=== PATIENT | female | born 1955 | race Caucasian/White ===

== ENCOUNTER 2018-02-13 17:44 | Emergency (ER) | payer SELFPAY ==
[2018-02-13 18:07] VITALS: TEMP 98.4
--- NOTE | 2018-02-13 18:15 | ED.PDOC ---
History of Present Illness - General Chief Complaint: General Stated Complaint: L groin discomfort Time Seen by Provider: 02/13/18 18:14 Source: patient Exam Limitations: no limitations - History of Present Illness Initial Comments: Meet Fine 62 y/o female stated that she had sharp left groin pain intermittently for the last 2 months but stated got more intense while he was wlaking shopping at [employer] today.Denies dysuria,history of trauma,fever,.No chronic medical problem. Timing/Duration: getting worse, intermittent, other - 2 months Severity: moderate Improving Factors: rest Worsening Factors: movement Associated Symptoms: denies symptoms Allergies/Adverse Reactions: Allergies NO KNOWN ALLERGY Allergy (Verified 02/13/18 18:06) Home Medications: Ambulatory Orders Acetamin W/Cod #3 Tab [Tylenol w/CODEINE #3] 1 ea PO TID #10 tab 02/13/18 Aspirin [Baby Aspirin] 81 mg PO DAILY 02/13/18 Dexlansoprazole [Dexilant] 60 mg PO DAILY PRN 02/13/18 Estradiol [Estrace] 2 mg PO DAILY 02/13/18 Progesterone Micronized [Progesterone] 100 mg PO BEDTIME 02/13/18 Thyroid [Nature-Throid] 130 mg PO DAILY 02/13/18 Review of Systems - Review of Systems Constitutional: States: no symptoms reported EENTM: States: no symptoms reported Respiratory: States: no symptoms reported Cardiology: States: no symptoms reported Gastrointestinal/Abdominal: States: no symptoms reported Genitourinary: States: no symptoms reported Musculoskeletal: States: see HPI Skin: States: no symptoms reported Past Medical History (General) - Patient Medical History Hx Stroke: No Hx Congestive Heart Failure: No Hx Thyroid Disease: Yes - David's Hx Diabetes: No Surgical History: appendectomy, other - hysterectomy - Vaccination History Hx Influenza Vaccination: Yes - 2017 Hx Pneumococcal Vaccination: No - Social History Hx Tobacco Use: Yes Hx Alcohol Use: No - social use Hx Physical Abuse: No Hx Emotional Abuse: No - Activities of Daily Living Patient Lives Alone: No Family Medical History - Family History Mother Living Status: Hx Family Stroke: Yes - mom Hx Cardiac Disease: Yes - dad Physical Exam - Physical Exam General Appearance: Alert, Comfortable, No apparent distress Eye Exam: bilateral normal Ears, Nose, Throat: hearing grossly normal, normal ENT inspection Neck: non-tender, full range of motion, supple, normal inspection Respiratory: chest non-tender, lungs clear, normal breath sounds Cardiovascular/Chest: normal peripheral pulses, regular rate, rhythm, no murmur Peripheral Pulses: radial,right: 2+, radial,left: 2+ Gastrointestinal/Abdominal: normal bowel sounds, non tender, soft Back Exam: no CVA tenderness, no vertebral tenderness Extremity: normal range of motion, non-tender, no pedal edema, no calf tenderness, other - rom left hip full,no masses felt groin area-left Neurologic: no motor/sensory deficits, alert, oriented x 3 Skin Exam: normal color, warm/dry Lymphatic: no adenopathy Progress - Progress Progress: 02/13/18 18:49 Vital Signs - 8 hr 02/13/18 17:57 Temperature 98.4 F Pulse Rate [ 98 H Left Radial] Respiratory 20 Rate Blood Pressure 147/67 [Left Arm] O2 Sat by Pulse 96 Oximetry - Results/Orders Results/Orders: Vital Signs - 8 hr 02/13/18 02/13/18 02/13/18 17:57 18:52 19:20 Temperature 98.4 F 98.4 F Pulse Rate [ 98 H 87 87 Left Radial] Respiratory 20 20 20 Rate Blood Pressure 147/67 119/64 129/86 [Left Arm] O2 Sat by Pulse 96 94 L 96 Oximetry 02/13/18 18:49 IV Care:Saline Lock per Protoc QSHIFT 02/13/18 19:41 Hold Metformin x 48Hrs [id number] Laboratory Results - last 24 hr 02/13/18 02/13/18 02/13/18 18:49 18:49 19:33 WBC 6.3 RBC 4.52 Hgb 14.1 Hct 40.5 MCV 89.7 MCH 31.2 H MCHC 34.7 RDW 13.8 Plt Count 310 MPV 6.6 L Absolute Neuts (auto) 3.40 Absolute Lymphs (auto) 1.90 Absolute Monos (auto) 0.80 Absolute Eos (auto) 0.20 Absolute Basos (auto) 0.10 Neutrophils % 53.4 Lymphocytes % 30.0 Monocytes % 12.4 H Eosinophils % 3.4 Basophils % 0.8 Sodium 142 Potassium 3.7 Chloride 109 Carbon Dioxide 25 Anion Gap 11.7 L BUN 15 Creatinine 1.02 BUN/Creatinine Ratio 14.7 Random Glucose 89 Serum Osmolality 283.4 Calcium 9.2 Urine Color Yellow Urine Appearance Clear Urine pH 6.0 Ur Specific [place] 1.025 Urine Protein Negative Urine Glucose (UA) Negative Urine Ketones Negative Urine Blood Negative Urine Nitrite Negative Urine Bilirubin Negative Urine Urobilinogen 0.2 Ur Leukocyte Esterase Negative Urine RBC 0-1 Urine WBC 5-10 H Ur Epithelial Cells 10-20 Urine Bacteria 3+ H Urine Mucus Moderate - EKG/XRAY/CT CT Ordered: Yes - abd/p-left nephrolithiasis non obstructing 4 mm. Departure - Departure Clinical Impression: Nephrolithiasis Abdominal pain Qualifiers: Abdominal location: left lower quadrant Qualified Code(s): R10.32 - Left lower quadrant pain Time of Disposition: 20:31 Disposition: Discharge to Home or Self Care Condition: Fair Departure Forms: ED Discharge - Pt. Copy, Patient Portal Self Enrollment Instructions: Inguinal and Femoral (Groin) Hernias, Groin Hernia (DC), Kidney Stones in Adults, Kidney Stones (DC) Prescriptions: Acetamin W/Cod #3 Tab [Tylenol w/CODEINE #3] 1 ea PO TID #10 tab Home Medications: Ambulatory Orders Acetamin W/Cod #3 Tab [Tylenol w/CODEINE #3] 1 ea PO TID #10 tab 02/13/18 Aspirin [Baby Aspirin] 81 mg PO DAILY 02/13/18 Dexlansoprazole [Dexilant] 60 mg PO DAILY PRN 02/13/18 Estradiol [Estrace] 2 mg PO DAILY 02/13/18 Progesterone Micronized [Progesterone] 100 mg PO BEDTIME 02/13/18 Thyroid [Nature-Throid] 130 mg PO DAILY 02/13/18 Additional Instructions: Follow up with 16 February 2018 call office-[phone] for appointment Return to ER as needed
[2018-02-13] MEDS ORDERED: LACTATED RINGERS 1,000 ML IVS ONE (18:49)
[2018-02-13] MEDS ORDERED: KETOROLAC TROMETHAMINE INJ 30 MG/ML VIAL IV ONE (18:50)
[2018-02-13] MEDS ORDERED: ORPHENADRINE CITRATE 30 MG/ML AMP IV ONE (18:50)
[2018-02-13 19:22] VITALS: O2SAT 96
[2018-02-13 20:18] VITALS: BP 187/63
--- NOTE | 2018-02-13 20:20 | CT ---
PROCEDURE: CT Abdomen and Pelvis With Intravenous Contrast CLINICAL INDICATION: The patient is 62 years old and is Female; left sided abdominal/groin pain nausea x2 months, no injury TECHNIQUE: Axial computed tomography images of the abdomen and pelvis with intravenous contrast. Sagittal and coronal reformatted images were created and reviewed. This exam was performed according to our departmental dose-optimization program, which includes automated exposure control, adjustment of the mA and/or kV according to patient size and/or use of iterative reconstruction technique. Oral contrast was not administered. COMPARISON: No relevant prior studies available. FINDINGS: LUNG BASES: Lung bases are unremarkable. ABDOMEN: LIVER: Hepatic steatosis is identified mild in degree. No intrahepatic lesions are noted. GALLBLADDER AND BILE DUCTS: Unremarkable. No calcified stones. No ductal dilation. PANCREAS: Unremarkable. No ductal dilation. No discrete lesion. No acute geraldo-pancreatic inflammatory change. SPLEEN: Unremarkable. No splenomegaly. ADRENALS: Unremarkable. No mass. KIDNEYS AND URETERS: Unremarkable with normal enhancement of both kidneys. There is a 4 mm nonobstructing calculus in the interpolar region of the LEFT kidney.. No solid mass. No hydronephrosis. STOMACH AND BOWEL: There has been prior gastric surgery. No obstruction. No mucosal thickening. PELVIS: APPENDIX: The appendix is surgically absent. BLADDER: The urinary bladder is underdistended. REPRODUCTIVE: Changes from prior hysterectomy noted. ABDOMEN and PELVIS: INTRAPERITONEAL SPACE: Unremarkable. No free air. No significant fluid collection. BONES/JOINTS: Facet degenerative change is noted in the lower lumbar spine. No acute fracture. No dislocation. SOFT TISSUES: Unremarkable. VASCULATURE: Unremarkable. No abdominal aortic aneurysm. LYMPH NODES: Unremarkable. No enlarged lymph nodes. IMPRESSION: No acute inflammatory process is identified in the abdomen or pelvis. No identifiable cause for the patient's pain. Status post hysterectomy and appendectomy. Electronically signed by: Levar Villa MD 02/13/2018 8:19 PM CDT
[2018-02-13] MEDS ORDERED: HYDROCOD/APAP 10/325 (ER DISP) # 3 tablets PO ONE (20:32)
== END 2018-02-13 20:59 | disposition home or self-care (01) ==
LOC: ER 17:44
DX: N20.0 Calculus of kidney (principal); R10.32 Left lower quadrant pain; E06.3 Autoimmune thyroiditis; Z87.891 Personal history of nicotine dependence; Z90.49 Acquired absence of other specified parts of digestive tract; Z79.82 Long term (current) use of aspirin; Z79.899 Other long term (current) drug therapy
CPT/HCPCS: 74177; 80048; 81001; 85025; J1885; J2360; J7120

== ENCOUNTER 2019-01-19 13:04 | Emergency (ER) | payer SELFPAY ==
[2019-01-19] MEDS ORDERED: ASPIRIN TABLET 325 MG TAB PO ONE (13:25)
[2019-01-19] MEDS ORDERED: NITROGLYCERIN 0.4 MG 25 EA TAB SL ONE (13:25)
--- NOTE | 2019-01-19 13:49 | ED.PDOC ---
History of Present Illness - General Chief Complaint: Chest Pain/TX Stated Complaint: Chest discomfort, elevated BP Time Seen by Provider: 01/19/19 13:20 Source: patient Exam Limitations: no limitations - History of Present Illness Initial Comments: Meet Fine 63 y/o female came to ER with chest pressure today which goes around her back with feeling of nausea.Went to check blood pressure at [facility] noted it was high BP-170/104 and went to her Md office to get it confirmed which showed same high BP.Had also been having sharp right sided headache with right eye photosensitivity.Has high blood pressure but not taking medications Timing/Duration: 7-24 hours Severity: moderate Location: central Activities at Onset: none Prior Chest Pain/Cardiac Workup: no prior chest pain, no prior cardiac workup Improving Factors: nothing Nitro Today/Relief: 0.4 mg x 1, provided by ED Aspirin Treatment Today: 81 mg x 4 Associated Symptoms: other - see hpi Allergies/Adverse Reactions: Allergies NO KNOWN ALLERGY Allergy (Verified 02/13/18 18:06) Home Medications: Ambulatory Orders Acetamin W/Cod #3 Tab [Tylenol w/CODEINE #3] 1 ea PO TID #10 tab 02/13/18 Aspirin [Baby Aspirin] 81 mg PO DAILY 02/13/18 Dexlansoprazole [Dexilant] 60 mg PO DAILY PRN 02/13/18 Estradiol [Estrace] 2 mg PO DAILY 02/13/18 Progesterone Micronized [Progesterone] 100 mg PO BEDTIME 02/13/18 Thyroid [Nature-Throid] 130 mg PO DAILY 02/13/18 Acetaminophen W/ Codeine [Tylenol/Codeine #4 300-60 mg] 1 ea PO Q4HR PRN #14 tab 01/19/19 amLODIPine BESYLATE [Norvasc] 5 mg PO DAILY #30 tab 01/19/19 Review of Systems - Review of Systems Constitutional: States: no symptoms reported EENTM: States: no symptoms reported Respiratory: States: no symptoms reported Cardiology: States: see HPI Gastrointestinal/Abdominal: States: no symptoms reported Musculoskeletal: States: no symptoms reported Skin: States: no symptoms reported Neurological: States: see HPI, numbness Past Medical History (General) - Patient Medical History Hx Stroke: No Hx Congestive Heart Failure: No Hx Thyroid Disease: Yes - Hashimotos Hx Diabetes: No Hx MRSA: No Surgical History: tonsillectomy, other - hysterectomy,btl,knee,foot - Vaccination History Hx Influenza Vaccination: No Hx Pneumococcal Vaccination: No - Social History Hx Tobacco Use: Yes Hx Alcohol Use: No Hx Physical Abuse: No Hx Emotional Abuse: No Family Medical History - Family History Mother Living Status: Hx Family Stroke: Yes - mom Hx Cardiac Disease: Yes - dad Physical Exam - Physical Exam General Appearance: Alert, Comfortable, No apparent distress Eyes, Ears, Nose, Throat Exam: PERRL/EOMI, normal ENT inspection, pharynx normal Neck: full range of motion, supple, normal inspection Respiratory: lungs clear, normal breath sounds, no respiratory distress Cardiovascular/Chest: normal peripheral pulses, regular rate, rhythm, no murmur Peripheral Pulses: radial,right: 2+, radial,left: 2+ Gastrointestinal/Abdominal: non tender, soft Extremity: no pedal edema, no calf tenderness Neurologic: alert, oriented x 3 Skin Exam: normal color, warm/dry Progress - Progress Progress: 01/19/19 14:01 Vital Signs 01/19/19 13:08 Pulse Rate [ 94 H Apical] Respiratory 20 Rate Blood Pressure 167/101 [Left Arm] O2 Sat by Pulse 96 Oximetry 01/19/19 16:57 FEELING GOOD;WANTS TO GO HOME - Results/Orders Results/Orders: 01/19/19 13:25 EKG Stat Chest,1 View [RAD] Stat Laboratory Results - last 24 hr 01/19/19 01/19/19 01/19/19 13:44 13:44 13:44 WBC 5.9 RBC 4.76 Hgb 15.3 Hct 42.9 MCV 90.0 MCH 32.1 H MCHC 35.7 RDW 13.8 Plt Count 302 MPV 7.1 L Absolute Neuts (auto) 3.60 Absolute Lymphs (auto) 1.60 Absolute Monos (auto) 0.60 Absolute Eos (auto) 0.20 Absolute Basos (auto) 0.00 Neutrophils % 60.4 Lymphocytes % 26.4 Monocytes % 9.7 H Eosinophils % 2.8 Basophils % 0.7 PT 9.1 INR 0.91 PTT (SP) 24.7 D-Dimer, Quantitative 0.36 Sodium 140 Potassium 3.6 Chloride 106 Carbon Dioxide 22 Anion Gap 15.6 BUN 11 Creatinine 0.82 BUN/Creatinine Ratio 13.4 Random Glucose 115 H Serum Osmolality 279.7 Calcium 9.2 Magnesium 2.2 Total Bilirubin 0.5 Direct Bilirubin < 0.1 Indirect Bilirubin 0.4 AST 32 ALT 28 Alkaline Phosphatase 60 Creatine Kinase 31 CK-MB (CK-2) 0.8 CK-MB (CK-2) % Not Reportable Troponin I < 0.02 B-Natriuretic Peptide 20.6 Serum Total Protein 6.9 Albumin 3.9 TSH 01/19/19 01/19/19 13:44 15:47 WBC RBC Hgb Hct MCV MCH MCHC RDW Plt Count MPV Absolute Neuts (auto) Absolute Lymphs (auto) Absolute Monos (auto) Absolute Eos (auto) Absolute Basos (auto) Neutrophils % Lymphocytes % Monocytes % Eosinophils % Basophils % PT INR PTT (SP) D-Dimer, Quantitative Sodium Potassium Chloride Carbon Dioxide Anion Gap BUN Creatinine BUN/Creatinine Ratio Random Glucose Serum Osmolality Calcium Magnesium Total Bilirubin Direct Bilirubin Indirect Bilirubin AST ALT Alkaline Phosphatase Creatine Kinase CK-MB (CK-2) CK-MB (CK-2) % Troponin I < 0.02 B-Natriuretic Peptide Serum Total Protein Albumin TSH 0.15 L Discuss all test result with patient - EKG/XRAY/CT EKG: Sinus, no ST T wave changes Comments: HR-93 CT Interpretation Call Back: Yes - no intracranial pathologic process Departure - Departure Clinical Impression: Chest discomfort, Headache above the eye region High blood pressure Qualifiers: Hypertension type: unspecified Qualified Code(s): I10 - Essential (primary) hypertension Time of Disposition: 17:02 Disposition: Discharge to Home or Self Care Condition: Fair Departure Forms: ED Discharge - Pt. Copy, Patient Portal Self Enrollment Instructions: DI for Chest Pain Prescriptions: Acetaminophen W/ Codeine [Tylenol/Codeine #4 300-60 mg] 1 ea PO Q4HR PRN #14 tab PRN Reason: Headache/Migraine Pain amLODIPine BESYLATE [Norvasc] 5 mg PO DAILY #30 tab Home Medications: Ambulatory Orders Acetamin W/Cod #3 Tab [Tylenol w/CODEINE #3] 1 ea PO TID #10 tab 02/13/18 Aspirin [Baby Aspirin] 81 mg PO DAILY 02/13/18 Dexlansoprazole [Dexilant] 60 mg PO DAILY PRN 02/13/18 Estradiol [Estrace] 2 mg PO DAILY 02/13/18 Progesterone Micronized [Progesterone] 100 mg PO BEDTIME 02/13/18 Thyroid [Nature-Throid] 130 mg PO DAILY 02/13/18 Acetaminophen W/ Codeine [Tylenol/Codeine #4 300-60 mg] 1 ea PO Q4HR PRN #14 tab 01/19/19 amLODIPine BESYLATE [Norvasc] 5 mg PO DAILY #30 tab 01/19/19 Additional Instructions: RETURN TO EMERGENCY ROOM NEEDED;FOLLOW UP WITH PRIMARY Md For Recheck Jan ust 2019
[2019-01-19] MEDS ORDERED: fentaNYL CITRATE INJ 50 MCG/ML AMP IV ONE (13:55)
[2019-01-19] MEDS ORDERED: LABETALOL INJ 5 MG/ML VIAL IV ONE (13:55)
[2019-01-19] MEDS ORDERED: PROCHLORPERAZINE INJ 10 MG/2 ML VIAL IV ONE (13:55)
--- NOTE | 2019-01-19 16:02 | CT ---
EXAM DESCRIPTION: Head CLINICAL HISTORY: headache COMPARISON: None available TECHNIQUE: Noncontrast head CT was performed with routine protocol. FINDINGS: Normal burns-white matter differentiation. Ventricles and sulci are normal for age. High density could be scarring or small contusion of the right frontal scalp. Clinical correlation recommended. No high density hemorrhage, focal edema or shift of the midline. No sulcal effacement. Normal orbital contents. Basilar cisterns appear clear. Intact calvarium with no fracture or lytic lesion. Normal aeration of tympanic cavities and mastoid air cells. No fluid levels in the paranasal sinuses. Skull base appears intact. Symmetrical internal auditory canals. IMPRESSION: No acute intracranial pathologic process. This exam was performed according to our departmental dose-optimization program, which includes automated exposure control, adjustment of the mA and/or kV according to patient size and/or use of iterative reconstruction technique. Total DLP equals 752.48 mGycm. Electronically signed by: Paul Roe MD 01/19/2019 4:00 PM CDT
--- NOTE | 2019-01-19 17:56 | RAD ---
EXAM DESCRIPTION: Chest,1 View CLINICAL HISTORY: chest discomfort COMPARISON: None Available. FINDINGS: Cardiac silhouette shows normal heart size. Pulmonary vascularity is within normal limits. Lungs show no confluent infiltrates. Bilateral costophrenic angles are sharp. No pneumothorax. Visualized osseous structures show no destructive lesions. Included upper abdomen show no acute abnormality. IMPRESSION: 1. No acute cardiopulmonary process. Electronically signed by: Gagan Herrera MD 01/19/2019 5:55 PM CDT
[2019-01-20 11:02] VITALS: BP 133/84; TEMP 97; O2SAT 96
== END 2019-01-19 17:39 | disposition home or self-care (01) ==
LOC: ER 13:04
DX: R07.89 Other chest pain (principal); R51 Headache; R03.0 Elevated blood-pressure reading, without diagnosis of hypertension; R11.0 Nausea; H53.141 Visual discomfort, right eye; E06.3 Autoimmune thyroiditis; Z79.899 Other long term (current) drug therapy; Z87.891 Personal history of nicotine dependence; Z79.82 Long term (current) use of aspirin

== ENCOUNTER 2019-03-07 04:44 | Emergency (ER) | payer SELFPAY ==
[2019-03-07] MEDS ORDERED: SODIUM CHLORIDE 0.9% 1000ML 1,000 ML IVS PRN (05:01)
[2019-03-07] MEDS ORDERED: SODIUM CHLORIDE 0.9% (FLUSH) 10 ML SYG IV PRN (05:01)
[2019-03-07] MEDS ORDERED: ONDANSETRON INJ 4 MG/2 ML VIAL IV ONE (05:01)
[2019-03-07] MEDS ORDERED: MORPHINE SULFATE INJ 10 MG/ML VIAL IV ONE ×2 (05:03→06:57)
--- NOTE | 2019-03-07 05:07 | ED.PDOC ---
History of Present Illness - General Information Source: patient, RN notes reviewed, Vital Signs reviewed Exam Limitations: no limitations - History of Present Illness Initial Comments: Pt is a 63 yo female who presents to ED for RUQ and epigastric pain for the past 4 days that has worsened in the past 24 hours. Has had nausea, but denies vomiting, diarrhea, fever, chills or flank pain. Has taken Tylenol and Motrin with some improvement. Denies CP, SOB. Denies any previous abdominal surgeries or h/o gall bladder problems. Pain Radiation: no radiation Quality: moderate <Kenroy Beyer - Last Filed: 03/07/19 05:10> <Don Muñiz - Last Filed: 03/07/19 08:24> - General Chief Complaint: Abdominal Pain Stated Complaint: rt abdomen/back pain Time Seen by Provider: 03/07/19 04:47 Review of Systems - Review of Systems Constitutional: Denies: chills, fever, weakness EENTM: States: no symptoms reported Respiratory: States: no symptoms reported Cardiology: Denies: chest pain, palpitations, syncope Gastrointestinal/Abdominal: States: abdominal pain, nausea. Denies: constipation, diarrhea, vomiting Genitourinary: Denies: dysuria, frequency, hematuria Skin: States: no symptoms reported All other Systems: Reviewed and Negative <Kenroy Beyer - Last Filed: 03/07/19 05:10> Past Medical History (General) - Patient Medical History Hx Stroke: No Hx Congestive Heart Failure: No Hx Hypertension: Yes Hx Thyroid Disease: Yes - Hashimotos Hx Diabetes: No Hx Gastroesophageal Reflux: Yes Hx MRSA: No - Vaccination History Hx Influenza Vaccination: No Hx Pneumococcal Vaccination: No Immunizations Up to Date: Yes - Social History Hx Tobacco Use: Yes Hx Alcohol Use: No Hx Physical Abuse: No Hx Emotional Abuse: No - Female History Patient is a Female of Child Bearing Age (10 -59 yrs old): No - Triage Comment ED Triage Comment: Episodes of similar abdominal pain in past, no definate cause of pain, per pt <Kenroy Beyer - Last Filed: 03/07/19 05:10> Family Medical History - Family History Mother Living Status: Hx Family Stroke: Yes - mom Hx Cardiac Disease: Yes - dad <Kenroy Beyer - Last Filed: 03/07/19 05:10> Physical Exam - Physical Exam General Appearance: Alert, Comfortable, No apparent distress Eyes, Ears, Nose, Throat Exam: pharynx normal Neck: non-tender, full range of motion, supple Respiratory: chest non-tender, lungs clear, normal breath sounds, no respiratory distress, no accessory muscle use Cardiovascular/Chest: normal peripheral pulses, regular rate, rhythm, no edema, no murmur Gastrointestinal/Abdominal: soft, other - TTP RUQ and epigastric areas. No guarding. nondistended Back Exam: normal inspection, no CVA tenderness, no vertebral tenderness Extremity: normal range of motion, non-tender, normal inspection Neurologic: no motor/sensory deficits, alert, normal mood/affect Skin Exam: normal color, warm/dry <Kenroy Beyer - Last Filed: 03/07/19 05:10> Progress - Progress Progress: 03/07/19 05:10 Kenroy Beyer #[id number] - EKG/XRAY/CT EKG: Sinus Comments: NSR, rate 96, nml intervals, no ST abnormality <Kenroy Beyer - Last Filed: 03/07/19 05:10> - Progress Progress: CT abd/pelvis: IMPRESSION: No acute findings on CT of the abdomen and pelvis. Mild diffuse fatty infiltration of the liver is stable from previous. Electronically signed by: Suhail Villeda MD 03/07/2019 7:29 AM CDT 03/07/19 07:40 SIgn out: patient presenting with RUQ pain radiating to R flank. Has had pain several times previously with numerus negative workups. Says pain is more severe today than usual. Workup here unremarkable. Pain is controlled. Will d/c to f/u with pcp. -Don Muñiz #[id number] <Don Muñiz - Last Filed: 03/07/19 08:24> Departure <Kenroy Beyer - Last Filed: 03/07/19 05:10> <Don Muñiz - Last Filed: 03/07/19 08:24> - Departure Clinical Impression: Lower abdominal pain Disposition: Discharge to Home or Self Care Condition: Good Departure Forms: ED Discharge - Pt. Copy, Patient Portal Self Enrollment Instructions: DI for Abdominal Pain-Adult Referrals: Sarah Chambers NP [Primary Care Provider] - 1-2 Weeks Prescriptions: Acetaminophen W/ Codeine [Tylenol W/ CODEINE #3] 1 ea PO Q6H PRN #15 PRN Reason: Pain Home Medications: Ambulatory Orders Aspirin [Baby Aspirin] 81 mg PO DAILY 02/13/18 Dexlansoprazole [Dexilant] 60 mg PO DAILY PRN 02/13/18 Estradiol [Estrace] 2 mg PO DAILY 02/13/18 Progesterone Micronized [Progesterone] 100 mg PO BEDTIME 02/13/18 Thyroid [Nature-Throid] 130 mg PO DAILY 02/13/18 Acetaminophen W/ Codeine [Tylenol W/ CODEINE #3] 1 ea PO Q6H PRN #15 03/07/19 Lisinopril PO 03/07/19
[2019-03-07] MEDS ORDERED: KETOROLAC TROMETHAMINE INJ 30 MG/ML VIAL IV ONE (07:26)
[2019-03-07] MEDS ORDERED: METHOCARBAMOL 750 MG TAB PO ONE (07:27)
--- NOTE | 2019-03-07 07:31 | CT ---
EXAM DESCRIPTION: Abdomen/Pelvis w/Contrast CLINICAL HISTORY: Upper abd pain, nausea COMPARISON: February 13, 2018 TECHNIQUE: Postcontrast CT images of the abdomen and pelvis are obtained using standard imaging protocol. This exam was performed according to our departmental dose-optimization program, which includes automated exposure control, adjustment of the mA and/or kV according to patient size and/or use of iterative reconstruction technique . FINDINGS: Visualized lung bases are unremarkable. Heterogeneous decreased attenuation of the liver consistent with fatty infiltration is stable from previous. No enhancing hepatic lesions. Spleen, pancreas, adrenal glands, gallbladder are unremarkable. Mild atherosclerotic disease. No nephrolithiasis. Normal cortical enhancement of the kidneys. No ureteral calcification or obstruction. Urinary bladder is unremarkable. Uterus is not visualized and presumed surgically absent. The ovaries are not identified. Appendix is not seen. Surgical suture line along the fundus of the stomach presumably related to gastric stapling is seen. No small bowel obstruction or inflammatory changes. Colon is unremarkable. No significant diverticular disease. No pathologically enlarged abdominal or retroperitoneal lymphadenopathy. Osseous structures show no aggressive bony lesions. Degenerative changes of the spine are seen.. IMPRESSION: No acute findings on CT of the abdomen and pelvis. Mild diffuse fatty infiltration of the liver is stable from previous. Electronically signed by: Suhail Villeda MD 03/07/2019 7:29 AM CDT
[2019-03-07 08:07] VITALS: BP 151/102; TEMP 97; O2SAT 94
== END 2019-03-07 08:17 | disposition home or self-care (01) ==
LOC: ER 04:44
DX: R10.30 Lower abdominal pain, unspecified (principal); R11.0 Nausea; K21.9 Gastro-esophageal reflux disease without esophagitis; I10 Essential (primary) hypertension; E06.3 Autoimmune thyroiditis; Z87.891 Personal history of nicotine dependence
CPT/HCPCS: 36415; 74177; 80053; 81001; 83690; 84484; 85025; 93005; J1885; J2270; J2405; J7030